=== PATIENT | male | born 1990 | race Caucasian/White ===

== ENCOUNTER 2024-12-16 20:25 | Emergency (ER) | payer SELFPAY ==
[~2024-12-16] VITALS: Ht 185.4 cm; Wt 82.6 kg
[2024-12-16] MEDS ORDERED: LIDOCAINE 1% INJ 50 ML MDV IJ ONE (21:01)
[2024-12-16] MEDS ORDERED: CEPH-570 PO (21:29)
[2024-12-16 21:43] VITALS: BP 135/80; TEMP 98.1; O2SAT 99
== END 2024-12-16 21:44 | disposition home or self-care (01) ==
LOC: ER 20:29
DX: L02.212 Cutaneous abscess of back [any part, except buttock and flank] (principal); Z60.2 Problems related to living alone; Z79.899 Other long term (current) drug therapy
CPT/HCPCS: 99283; 10060; J3490; A6403